=== PATIENT | female | born 1990 | race Caucasian/White ===

== ENCOUNTER → 2018-01-25 10:23 | Outpatient (CLI) | payer MEDICAID, SELFPAY ==
[2018-01-25 11:08] LABS: Hemoglobin 11.9 g/dl (12.0-15.0); Mean Corp Hgb Conc 33.1 g/gl (32-36); Mean Corpuscular Hgb 30.1 pg (27.0-32.0); Mean Corpuscular Volume 91.1 fL (81-99); Mean Platelet Vol. 9.3 fl (6.2-12.0); Platelet Count 374 K/mm3 (150-450); RBC Distribution Width CV 12.9 % (11.6-14.6); RBC Distribution Width SD 42.6 fl (35.1-43.9); Red Blood Count 3.95 M/mm3 (4.2-5.4)
[2018-01-25 11:09] LABS: Scan Indicated on CBC? Y/N NO
[2018-01-25 11:28] LABS: Glucose Challenge Gest 1H 50g 170 mg/dL (70-140)
== END ==
PROVIDERS: Visit Provider Obstetrics & Gynecology
DX: Z34.83 Encounter for supervision of other normal pregnancy, third trimester (principal)
CPT/HCPCS: 36415; 82950; 85027; 86850

== ENCOUNTER → 2018-02-01 06:40 | Outpatient (CLI) | payer MEDICAID, SELFPAY ==
[2018-02-01 08:01] LABS: Glucose GTT-Gestation. Fasting 93 mg/dL (<105)
[2018-02-01 09:01] LABS: Glucose GTT-Gestational 1 Hr 147 mg/dL (<190)
[2018-02-01 09:41] LABS: Glucose GTT-Gestational 2 Hr 126 mg/dL (<165)
[2018-02-01 11:19] LABS: Glucose GTT-Gestational 3 Hr 61 L (<145)
== END ==
PROVIDERS: Visit Provider Obstetrics & Gynecology
DX: O24.912 Unspecified diabetes mellitus in pregnancy, second trimester (principal); Z3A.00 Weeks of gestation of pregnancy not specified
CPT/HCPCS: 36415; 82951; 82952

== ENCOUNTER → 2018-03-17 11:26 | Outpatient (CLI) | payer MEDICAID, SELFPAY ==
[2018-03-17 15:48] LABS: Group B Strep DNA By PCR Negative (Negative); Internal Control PASS; Probe Check PASS; Specimen Processing Control PASS
== END ==
PROVIDERS: Visit Provider Obstetrics & Gynecology
DX: Z36.85 Encounter for antenatal screening for Streptococcus B (principal)
CPT/HCPCS: 87081; 87653

== ENCOUNTER 2018-04-09 21:16 | Inpatient (IN) | payer MEDICAID, SELFPAY ==
--- NOTE | 2018-04-08 11:36 | PLAC_PTH ---
PATIENT: MICHEL BLAND LOC: [facility] U#:[id number] AGE/SX: / ROOM: WP005 RE04/09/[address]: Dr. Marga Scales MD : 1990 BED: 1 DIS: 04/10/2018 SPEC #: [id number] RECD: 04/10/18 12:04 STATUS: GRACIELA RECarlos #: [id number] SARA: 04/08/18 11:[address]: Marga Garcia DEPT: SURGICAL PATHOLOGY RECD BY: Addison Peguero ENTERED: 04/12/18 11:24 SP TYPE: PLACENTA OTHR DR: Dr. Meño Alexander MD Tissues: Placenta, NOS Procedures: Surgery Specimen Level V HEADER OPERATION: Vaginal delivery PRE-OP DIAGNOSIS: 39 weeks , meconium TISSUE SUBMITTED: Placenta MICROSCOPIC DIAGNOSIS Woody placenta (546 gm): Umbilical cord ? trivascular with acute funisitis. Placental membranes ? acute deciduitis, mild acute chorionitis. Pigmented macrophages consistent with meconium staining. Placental disc ? acute vasculitis of superficial placental vessels, Vicky-Arturo change and mildly increased intraparenchymal microcalcifications. AM:jonathan 04/13/18 MICROSCOPIC DESCRIPTION Slides are reviewed. GROSS DESCRIPTION SPECIMEN: PLACENTA / CLINICAL INFORMATION: A. Weight: 3.459 kg B. Gestational Age: 39 weeks C. Sex: Male PLACENTAL WEIGHT (POST FIXATION): 546 gm PLACENTAL DIMENSIONS: 18 x 18 x 3 cm PLACENTAL SHAPE: Usual ovoid PLACENTAL WEIGHT FOR GESTATIONAL AGE: Within 10-99th percentile MEMBRANES - Present A. Insertion: Marginal B. Site of rupture from edge: 3.5 cm from edge of placental disc C. Color of membrane: Dubon-greenish consistent with meconium stain D. Abnormalities: None UMBILICAL CORD - Present A. Color: Dubon-jeronimo B. Insertion: Paracentral C. Length: 29 cm D. Diameter: 1 to 1.5 cm E. Number of vessels: Three F. Abnormalities: A few false knots are noted. PLACENTAL DISC - Present A. Color of surface: Dubon-jeronimo B. surface abnormalities: None C. Maternal cotyledons: Intact with minimal tears D. Attached retro placental clot: No clot E. Cut surface: Dark red and spongy F. Lesions: None G. Separate clot: Absent SECTIONS SUBMITTED: 1. Membrane roll 2. Cord, maternal end 3. Cord, end 4. Placental disc, and maternal surfaces 5. Placental disc, and maternal surfaces 6. Placental disc, and maternal surfaces JARROD:jonathan 04/12/18 TC:2 CPT: 50599
[2018-04-09 21:00] VITALS: BMI 431.0
[2018-04-09 21:23] LABS: ROM Internal Control Test YES-OK TO RESULT pt. (Internal QC); ROM Patient Test Negative (Negative)
[2018-04-09] MEDS: Lactated Ringers 1,000 ML 50 ML IV ×2 (21:25→23:00)
--- NOTE | 2018-04-09 21:30 | PCM.HPOB.BLA ---
- Problem List (1) 38 to 41 weeks gestation of Status: Acute (2) Labor established Status: Acute History and Physical Date of Admission: 04/09/18 Date: 04/09/2018 Name: MICHEL CASILLAS Age: 27 Date of : 1990 History and Physical Michel Casillas, a 27 year old female 0 0 0 0 0, presents with painful contractions. Denies leaking of fluid or vaginal bleeding. Fetus active. She recently smoked before arrival. [facility] MEDICATIONS HISTORY: vitamin ALLERGIES: No Known Allergies Infections - Chicken pox and yeast inf Illnesses - anxiety, migraines, ADD diagnosed in 2001 and mild pollen allergies Accidents - skull fx late , basketball injury with rt first rib removal age 17. Hospitalizations - see surgery and long stay-medical prob. Fx Skull post fall from horse 1999; Review of Systems: GENERAL - Denies fever, or chills SKIN - Denies skin changes EYES - Denies visual changes RESPIRATORY - Denies shortness of breath or wheezing CARDIOVASCULAR - Denies palpitations or chest pain GASTROINTESTINAL - Denies nausea, vomiting, diarrhea, constipation SOCIAL HISTORY: Alcohol Use - denies drinking Smoking - 5 cig/day Diet - balanced Diet, caffeine < 2 drinks per day and water Illicit Drug Use - denies cocaine, marijuana or heroine or other illicit drug use Residence - lives with Place of - [place] Spouse-Sig Other Name - KALEIGH Wiley Spouse-Sig Other Occupation - [employer] Spouse-Sig Other Phone No - [phone] Control - FAMILY HISTORY: Non-contributory MENSTRUAL HISTORY: LMP Known?- DefiniteAmount/Duration - 4-5 days, Regularity - Regular, LMP - 07/05/17, Age Onset Menarche - 12 PAST PREGNANCIES: Total Pregnancies - 1; Full Term Pregnancies - 0; Premature - 0; Abortions, Induced - 0; Abortions, Spontaneous - 0; Ectopics - 0; Multiple Births - 0; Living Children - 0 SURGICAL HISTORY: 1. [place] Teeth Removal ; - 2. removal rt rib ; - PHYSICAL EXAM BP- 140/87 140/100 P 80s-90s R 18 CONSTITUTIONAL - NAD, well nourished, and well developed SKIN - No rash, lesions, or ulcers HEENT - normocephalic, atraumatic, sclerae anicteric LUNGS - CTA x2 without wheezes, crackles or rales CARDIAC - Regular rate and rhythm without rubs, murmurs, or gallops ABDOMEN - Without hepatosplenomegaly, distention, masses, rebound, or guarding; gravid, fundus soft between contractions and nontender EXTREMITIES - trace LE edema, no calf tenderness NEUROLOGICAL - normal gait, normal balance, normal motor PSYCHIATRIC - A and O to time, place, person, mood and affect External Genitial Vagina - non-tender without lesions Urethra/Urethral Meatus - non-tender Bladder - non-tender Cervix - 4/80/-2, soft and anterior Uterus - 39w size FHR 145, minimal variability, no accelerations, + variable deceleration LABS O neg Rubella immune RPR nr HIV neg HBsAg neg HCV Ab neg 1h GTT 170 - 3h GTT wnl GC/CT neg PAP NILMA ASSESSMENT/PLAN: 1. Encounter for Supervision of Normal First , Third Trimester Admit in labor with Cat II FHR, elevated maternal BP No FHR acceleration despite acoustic stim and scalp stimulation. Will reposition and give IV fluids. Amniotomy performed with clear fluid and ISE placed. Monitor closely. Reviewed with patient if no significant improvement of FHR following resuscitative efforts will plan for section. Reviewed risks including, but not limited to pain, bleeding, infection including wound, endometritis and sepsis, scarring, need for blood transfusion, possible hysterectomy or further surgery, possible bowel or urinary injury, potential from complication, laceration or TTN. US with fetus cephalic Preeclamptic labs for elevated BPs Urine tox screen Patient and spouse given opportunity to ask questions and questions answered to their satisfaction.
[2018-04-09 21:44] LABS: Hematocrit 35.6 % (37-47); Hemoglobin 12.4 g/dl (12.0-15.0); Mean Corp Hgb Conc 34.8 g/gl (32-36); Mean Platelet Vol. 10.1 fl (6.2-12.0); Platelet Count 455 K/mm3 (150-450); RBC Distribution Width SD 44.4 fl (35.1-43.9); Scan Indicated on CBC? Y/N NO; White Blood Count 21.2 K/mm3 (4.4-11.0)
[2018-04-09 21:51] LABS: International Normalized Ratio 0.9; Prothrombin Time (Protime)PT. 12.5 SECONDS (11.7-14.9)
[2018-04-09 21:52] LABS: Partial Thromboplast Time 22.8 Seconds (24.1-36.2)
--- NOTE | 2018-04-09 21:55 | PCM.PN.BLA ---
Progress Note LABOR PROGRESS NOTE - Entry for approximately 2155h Contractions have intensified since water was broken. AVSS GEN - breathing through contractions FHR 135, moderate variability, + accelerations, + variable deceleration TOCO 4/10 min SVE deferred A/P: 27yo G1 @ 38 6/7wga in latent labor, post AROM, Cat II FHR -Labs reviewed and not c/w preeclampsia -FHR improved with intrauterine resuscitation. Following discussion, will plan to continue labor. Reviewed plan for continuous monitoring and that medical recommendation for delivery mode may change at any time. Patient reports understanding. Desires epidural. Patient and support persons given opportunity to ask questions and questions answered to their satisfaction. -Maternal and statuses overall reassuring. -Anesthesiology consult
[2018-04-09 22:04] LABS: AST(SGOT) 25 U/L (15-37); Alanine Aminotransfer ALT/SGPT 28 U/L (13-56); Creatinine, Serum 0.61 mg/dL (0.55-1.02); EST Glomerular Filtration Rate 126 mL/min (>60); Est Glom Filt Rate - Afr Amer 153 mL/min (>60); Estimated Creatinine Clearance 221.51 ml/min; Uric Acid 4.4 mg/dL (2.6-6.0)
--- NOTE | 2018-04-09 22:35 | HP.PCM_ITS ---
- Problem List (1) 38 to 41 weeks gestation of Status: Acute (2) Labor established Status: Acute History and Physical Date of Admission: 04/09/18 Date: 04/09/2018 Name: MICHEL CASILLAS Age: 27 Date of : 1990 History and Physical Michel Casillas, a 27 year old female 0 0 0 0 0, presents with painful contractions. Denies leaking of fluid or vaginal bleeding. Fetus active. She recently smoked before arrival. [facility] MEDICATIONS HISTORY: vitamin ALLERGIES: No Known Allergies Infections - Chicken pox and yeast inf Illnesses - anxiety, migraines, ADD diagnosed in 2001 and mild pollen allergies Accidents - skull fx late , basketball injury with rt first rib removal age 17. Hospitalizations - see surgery and long stay-medical prob. Fx Skull post fall from horse 1999; Review of Systems: GENERAL - Denies fever, or chills SKIN - Denies skin changes EYES - Denies visual changes RESPIRATORY - Denies shortness of breath or wheezing CARDIOVASCULAR - Denies palpitations or chest pain GASTROINTESTINAL - Denies nausea, vomiting, diarrhea, constipation SOCIAL HISTORY: Alcohol Use - denies drinking Smoking - 5 cig/day Diet - balanced Diet, caffeine < 2 drinks per day and water Illicit Drug Use - denies cocaine, marijuana or heroine or other illicit drug use Residence - lives with Place of - [place] Spouse-Sig Other Name - KALEIGH Wiley Spouse-Sig Other Occupation - [employer] Spouse-Sig Other Phone No - [phone] Control - FAMILY HISTORY: Non-contributory MENSTRUAL HISTORY: LMP Known?- DefiniteAmount/Duration - 4-5 days, Regularity - Regular, LMP - 07/05/17, Age Onset Menarche - 12 PAST PREGNANCIES: Total Pregnancies - 1; Full Term Pregnancies - 0; Premature - 0; Abortions, Induced - 0; Abortions, Spontaneous - 0; Ectopics - 0; Multiple Births - 0; Living Children - 0 SURGICAL HISTORY: 1. [place] Teeth Removal ; - 2. removal rt rib ; - PHYSICAL EXAM BP- 140/87 140/100 P 80s-90s R 18 CONSTITUTIONAL - NAD, well nourished, and well developed SKIN - No rash, lesions, or ulcers HEENT - normocephalic, atraumatic, sclerae anicteric LUNGS - CTA x2 without wheezes, crackles or rales CARDIAC - Regular rate and rhythm without rubs, murmurs, or gallops ABDOMEN - Without hepatosplenomegaly, distention, masses, rebound, or guarding; gravid, fundus soft between contractions and nontender EXTREMITIES - trace LE edema, no calf tenderness NEUROLOGICAL - normal gait, normal balance, normal motor PSYCHIATRIC - A and O to time, place, person, mood and affect External Genitial Vagina - non-tender without lesions Urethra/Urethral Meatus - non-tender Bladder - non-tender Cervix - 4/80/-2, soft and anterior Uterus - 39w size FHR 145, minimal variability, no accelerations, + variable deceleration LABS O neg Rubella immune RPR nr HIV neg HBsAg neg HCV Ab neg 1h GTT 170 - 3h GTT wnl GC/CT neg PAP NILMA ASSESSMENT/PLAN: 1. Encounter for Supervision of Normal First , Third Trimester Admit in labor with Cat II FHR, elevated maternal BP No FHR acceleration despite acoustic stim and scalp stimulation. Will reposition and give IV fluids. Amniotomy performed with clear fluid and ISE placed. Monitor closely. Reviewed with patient if no significant improvement of FHR following resuscitative efforts will plan for section. Reviewed risks including, but not limited to pain, bleeding, infection including wound, endometritis and sepsis, scarring, need for blood transfusion, possible hysterectomy or further surgery, possible bowel or urinary injury, potential from complication, laceration or TTN. US with fetus cephalic Preeclamptic labs for elevated BPs Urine tox screen Patient and spouse given opportunity to ask questions and questions answered to their satisfaction.
[2018-04-09] MEDS: fentaNYL-bupivacaine (epidural) 100 ML BAG EPIDURAL (22:36)
[2018-04-09] MEDS: Mag Hydrox/Al Hydrox/Simeth 30 ML UDC PO (23:20)
[2018-04-09 23:23] LABS: Amphetamine Urine VISTA NEGATIVE (<1000 ng/mL); Barbiturate Urine VISTA NEGATIVE (< 200 ng/mL); Benzodiazepine Urine VISTA NEGATIVE (< 200 ng/mL); Cocaine Urine VISTA NEGATIVE (< 300 ng/mL); Ecstacy Urine VISTA NEGATIVE (< 500 ng/mL); Methadone Urine VISTA NEGATIVE (< 300 ng/mL); PCP Urine VISTA NEGATIVE (< 25 ng/mL); THC Urine VISTA POSITIVE (< 50 ng/mL); Vista UDS pH Range 7
[2018-04-10] MEDS: Ondansetron 4 MG/2 ML Vial IV (01:32)
[2018-04-10] MEDS: fentaNYL-bupivacaine (epidural) 100 ML BAG EPIDURAL (02:53)
[2018-04-10] MEDS: Amnioinfusion- 0.9% NS 1,000 ML IV.SOLN. 300 ML INTRA-UTER (03:56)
[2018-04-10] MEDS: Lactated Ringers 1,000 ML 50 ML IV (03:58)
--- NOTE | 2018-04-10 07:48 | PCM.PN.BLA ---
Progress Note LABOR PROGRESS NOTE No complaints. Comfortable with epidural. AVSS GEN - NAD, AAO x 3 FHR 145, moderate variability, + accelerations, no decelerations TOCO 3/10 min SVE FD/100/+1 with meconium stained fluid per RN Charles Leon at approx 0650h. A/P: 27yo G1 @ 39wga in labor, Cat II FHR -Proceed to pushing given meconium stained fluid and Cat II FHR -Discussed LARCs - patient declines. -Maternal and status overall reassuring
[2018-04-10] MEDS: Mag Hydrox/Al Hydrox/Simeth 30 ML UDC PO (08:23)
--- NOTE | 2018-04-10 08:31 | PCM.PN.BLA ---
Progress Note LABOR PROGRESS NOTE Patient pushing with good effort. SVE FD/+1 and pushed to +2, small caput. Direct OP. FHR 145, moderate variability, + accelerations, + variable decelerations, Cat II FHR. status overall reassuring. Continue pushing.
[2018-04-10 09:58] LABS: Protein, Urine (Random) 12.6 mg/dL (<11.9); Protein:Creat Ratio 441 mg/g CRE (0-200)
[2018-04-10] MEDS: Oxytocin 30 units/NS 500 ml 30 UNITS/500 ML IV.SOLN 334 UNITS IV (10:25)
--- NOTE | 2018-04-10 10:48 | PCM.OB.VAG ---
- Problem List (1) 38 to 41 weeks gestation of Status: Acute (2) Labor established Status: Acute Vaginal Delivery Maternal Presentation: Active Labor, - - Cat II FHR Amniotomy for augmentation Amniotic Membrane Rupture Type: Artificial Rupture of Membrane time: 04/09/187h Amniotic Fluid Description: Thick meconium Final ADRIAN: 04/17/18 Gestational age: 39 Weeks and 0 Days Commodore doctor who attended delivery (if requested by OB): Carla Byrnes Date of Procedure: 04/10/18 Pre-Operative Diagnosis: 39 weeks, meconium Post-Operative Diagnosis: 39 weeks, meconium Surgery/ Procedure Performed: Spontaneous Vaginal Delivery Anesthesiologist: Prabha Escamilla Type of Anesthesia: Epidural Description of Procedure: Patient was FD/+3 on my arrival. She pushed with excellent effort through a terminal deceleration to deliver a vigorous male infant in OA over an intact perineum. The was placed on the maternal abdomen and further attended by nursery personnel. The cord was doubly clamped and cut at approximately 3 minutes of life. Cord gases, cord blood specimen were obtained. The placenta delivered spontaneously and appeared intact on inspection. IV pitocin was started. Intrauterine exam performed. Fundal tone was excellent. A small vaginal laceration was repaired with 3-0 Vicryl Rapide for hemostasis. A right labial laceration was also reapproximated with 3-0 Vicryl Rapide with hemostasis attained. Sponge counts were correct x 2 Patient tolerated the procedure well. Presentation: Vertex Placental Delivery Description: Spontaneous Placenta Disposition: [facility] Cord Vessel Description: 3 Vessels Cord Gases drawn per routine: ABG, VBG Cord Entanglement: None Estimated Blood Loss: 250 ml Infant A gender: Male (1 minute): 8 (5 minute): 9 Episiotomy Description: None Laceration: Midline, Vaginal Extension/lac, 1st degree Medications given after delivery: IV Pitocin Complications: None
[2018-04-10] MEDS: Oxytocin 30 units/NS 500 ml 30 UNITS/500 ML IV.SOLN 167 UNITS IV (10:55)
[2018-04-10 12:07] LABS: Pathology Specimen OB SEE PATHOLOGY REPORT
[2018-04-10 15:58] VITALS: BP 143/87; PULSE 85; RESP 16; TEMP 37; O2SAT 98
--- NOTE | 2018-04-10 16:04 | NURSING ---
Pt up to bathroom x2, voided qs x 2, but did not measure. Pt states feels bladder emptied each time.
--- NOTE | 2018-04-10 17:01 | PCM.DCVAG ---
Discharge Diet: No Restrictions Discharge Activity: Return to Normal Activity, May Shower, May Take a Tub Bath May resume sexual activity in: 6 weeks Lifting Restrictions: 20 lb Call your doctor if you observe: Fever of 101 or Higher, Inability to urinate, Inability to have a bowel movement, Using more than one pad per hour, Shortness of breath, Chest pain, Calf discomfort, Uncontrolled pain, - - Persistent headache Additional Instructions: If you experience any of the following, contact your healthcare provider. Bleeding that soaks a pad every hour for 2 hours Fever 100.4 or higher Unrelieved incision or abdominal pain Swelling, redness, discharge or bleeding from your incision or episiotomy site Your incision begins to separate Problems urinating (including inability to urinate or burning while urinating). Visual changes Severe headache Flu-like symptoms Pain or redness in one of both of your breasts Pain, warmth, tenderness or swelling in your legs, especially the calf area Frequent nausea and vomiting Symptoms of depression or anxiety If you experience any of the following, call 911 or go to the nearest Emergency Room. Chest pain Problems breathing Seizure activity Partial or complete paralysis of a body part, slurred speech, weakness or drooping of the face, or a sudden inability to walk or hold your balance Allergies/Adverse Reactions: Allergies No Known Allergies Allergy (Verified 04/09/18 20:51) Medications to take at Discharge Vits [Prenatabs FA] 1 tablet PO DAILY 04/09/18 Docusate Sodium [Colace] 100 mg PO BID PRN PRN #60 cap 04/10/18 Ibuprofen 600 mg PO TID PRN #30 tab 04/10/18 The following prescriptions were given: Docusate Sodium [Colace] 100 mg PO BID PRN PRN #60 cap PRN Reason: Constipation Ibuprofen 600 mg PO TID PRN #30 tab PRN Reason: Pain Please Follow Up With: Sanju Jewell MD When: 1-2 weeks AND at 6 weeks Primary Care Physician: Meño Alexander MD [Primary Care Provider] -
--- NOTE | 2018-04-10 17:04 | DCINST_ITS ---
Discharge Diet: No Restrictions Discharge Activity: Return to Normal Activity, May Shower, May Take a Tub Bath May resume sexual activity in: 6 weeks Lifting Restrictions: 20 lb Call your doctor if you observe: Fever of 101 or Higher, Inability to urinate, Inability to have a bowel movement, Using more than one pad per hour, Shortness of breath, Chest pain, Calf discomfort, Uncontrolled pain, - - Persistent headache Additional Instructions: If you experience any of the following, contact your healthcare provider. * Bleeding that soaks a pad every hour for 2 hours * Fever 100.4 or higher * Unrelieved incision or abdominal pain * Swelling, redness, discharge or bleeding from your incision or episiotomy site * Your incision begins to separate * Problems urinating (including inability to urinate or burning while urinating) . * Visual changes * Severe headache * Flu-like symptoms * Pain or redness in one of both of your breasts * Pain, warmth, tenderness or swelling in your legs, especially the calf area * Frequent nausea and vomiting * Symptoms of depression or anxiety If you experience any of the following, call 911 or go to the nearest Emergency Room. * Chest pain * Problems breathing * Seizure activity * Partial or complete paralysis of a body part, slurred speech, weakness or drooping of the face, or a sudden inability to walk or hold your balance Allergies/Adverse Reactions: Allergies No Known Allergies Allergy (Verified 04/09/18 20:51) Medications to take at Discharge Vits [Prenatabs FA] 1 tablet PO DAILY 04/09/18 Docusate Sodium [Colace] 100 mg PO BID PRN PRN #60 cap 04/10/18 Ibuprofen 600 mg PO TID PRN #30 tab 04/10/18 The following prescriptions were given: Docusate Sodium [Colace] 100 mg PO BID PRN PRN #60 cap PRN Reason: Constipation Ibuprofen 600 mg PO TID PRN #30 tab PRN Reason: Pain Please Follow Up With: Sanju Jewell MD When: 1-2 weeks AND at 6 weeks Primary Care Physician: Meño Alexander MD [Primary Care Provider] -
[2018-04-10 17:30] VITALS: BP 133/87; PULSE 88; RESP 16; TEMP 36.6; O2SAT 98
--- NOTE | 2018-04-10 18:24 | PCM.PN.OB ---
Patient Problems: Active and Suspected Problems (spontaneous vaginal delivery) (Acute) 38 to 41 weeks gestation of (Acute) Labor established (Acute) Subjective: Denies headache, vision changes, shortness of breath, chest pain, abdominal pain or lightheadedness. Notes glittering in vision and headache however when does not wear glasses for too long in the past, however this occurred also before and resolves immediately upon wearing glasses. None of these sx today. She feels physically well. Notes bleeding is not heavy - pad is minimally to moderate saturated after several hours. She indicated concern about being with infant and hopes he will be okay. Objective: AVSS - Physical Exam General: Alert, Oriented x3, Cooperative, No apparent distress HEENT: Atraumatic, Normocephalic Lungs: Clear to auscultation, Normal air movement Cardiovascular: Regular rate, Regular Rhythm, Normal S1, Normal S2 Abdomen: Soft, Non Tender, Non-Distended, - - Fundus firm and nontender Extremities: No edema, No Calf Tenderness Neurological: Deep Tendon Reflexes 2+/4 and Symmetrical, Neuro grossly intact, - - No clonus Psych/Mental Status: Normal Affect, Appropriate, Alert and oriented to time, place, person, mood and affect Vital Signs Temp Pulse Resp BP Pulse Ox 97.8 F 88 16 133/87 H 98 04/10/18 17:30 04/10/18 17:30 04/10/18 17:30 04/10/18 17:30 04/10/18 17:30 Oxygen Delivery Method Room Air Weight: 100.4 kg Body Mass Index (BMI) 431.0 Intake and Output for Last 24 Hours 04/08/18 04/09/18 04/10/18 23:59 23:59 23:59 Intake Total 4826 / 4826 Output Total 4400 / 4400 Balance 426 / 426 Laboratory Tests Past 24 Hrs 04/09/18 04/09/18 04/09/18 20:43 21:25 21:25 WBC 21.2 H RBC 4.00 L Hgb 12.4 Hct 35.6 L MCV 89.0 MCH 31.0 MCHC 34.8 RDW 14.0 RDW Differential 44.4 H Plt Count 455 H MPV 10.1 PT INR APTT Creatinine Estim Creat Clear Calc Est GFR (MDRD) Af Amer Est GFR (MDRD) Non-Af Uric Acid AST ALT U Random Total Protein Urine Creatinine Protein/Creatinin Ratio Vag Amniotic Fld Detect Negative Urine Opiates Screen Urine Methadone Screen Ur Barbiturates Screen Ur Phencyclidine Scrn Ur Amphetamines Screen U Methamphetamin-MDMA U Benzodiazepines Scrn Urine Cocaine Screen U Cannabinoids Screen Ur Drug Screen Comment Blood Type Cancelled A1 Antigen Typing Cancelled Rho(D) Type Cancelled Antibody Screen Cancelled Screen Baby's Blood Type Baby's PATRICIA 04/09/18 04/09/18 04/09/18 21:25 21:25 22:12 WBC RBC Hgb Hct MCV MCH MCHC RDW RDW Differential Plt Count MPV PT 12.5 INR 0.9 APTT 22.8 L Creatinine 0.61 Estim Creat Clear Calc 221.51 Est GFR (MDRD) Af Amer 153 Est GFR (MDRD) Non-Af 126 Uric Acid 4.4 AST 25 ALT 28 U Random Total Protein Urine Creatinine Protein/Creatinin Ratio Vag Amniotic Fld Detect Urine Opiates Screen Urine Methadone Screen Ur Barbiturates Screen Ur Phencyclidine Scrn Ur Amphetamines Screen U Methamphetamin-MDMA U Benzodiazepines Scrn Urine Cocaine Screen U Cannabinoids Screen Ur Drug Screen Comment Blood Type O NEGATIVE A1 Antigen Typing Rho(D) Type Antibody Screen NEGATIVE Screen Baby's Blood Type Baby's PATRICIA 04/09/18 04/09/18 04/10/18 22:20 22:20 11:50 WBC RBC Hgb Hct MCV MCH MCHC RDW RDW Differential Plt Count MPV PT INR APTT Creatinine Estim Creat Clear Calc Est GFR (MDRD) Af Amer Est GFR (MDRD) Non-Af Uric Acid AST ALT U Random Total Protein 12.6 H Urine Creatinine 28.60 Protein/Creatinin Ratio 441 H Vag Amniotic Fld Detect Urine Opiates Screen NEGATIVE Urine Methadone Screen NEGATIVE Ur Barbiturates Screen NEGATIVE Ur Phencyclidine Scrn NEGATIVE Ur Amphetamines Screen NEGATIVE U Methamphetamin-MDMA NEGATIVE U Benzodiazepines Scrn NEGATIVE Urine Cocaine Screen NEGATIVE U Cannabinoids Screen POSITIVE H Ur Drug Screen Comment Blood Type A1 Antigen Typing Rho(D) Type Antibody Screen Screen NEGATIVE Baby's Blood Type O POSITIVE Baby's PATRICIA NEGATIVE Medical Necessity - Tobacco Use Smoking Status: Light Smoker (<10/day) Assessment/Plan Active and Suspected Problems (spontaneous vaginal delivery) (Acute) 38 to 41 weeks gestation of (Acute) Labor established (Acute) 27yo s/p with h/o anxiety, tobacco use requesting early discharge due to pending transfer due to respiratory complications. Few elevated BPs intrapartum/. 04/09/18 preeclamptic serum labs negative and urine p/c 0.44 however collected following rupture of membranes, thus possibly contaminated. With chart and nursing staff review it appears blood pressure elevation most likely related to anxiety - occurred in acute labor with painful contractions and when she had several visitors and she indicated feeling anxious with too many visitors per RN with quick resolution to baseline BP after visitors left. Most recent elevated BP occurred shortly following decompensatory event and patient also noted significant anxiety and concern for infant. Patient remains asx for preeclampsia and no exam findings during my assessment. I have cleared for discharge as no evidence of preeclampsia. However, reviewed with her again potential for preeclampsia to occur in women even following delivery and potential sequelae including neurologic, hepatic and renal complications. Patient reports understanding. Si/sx reviewed with her and her family members. Pt encouraged to call office for any concern and understands she must follow up for BP check on or Wednesday this coming week. Additionally, reviewed increased risk for depressions. Discussed PP blues and sx differentiating PP depression from blues. Rh negative, Rh positive. For Rhogam, then will d/c later this evening.
--- NOTE | 2018-04-11 08:15 | DS.PCM_ITS ---
Discharge Date and Diagnosis Date of Admission: 04/09/18 Date of Discharge: 04/10/18 Hospital Course and Treatment Summary of Care Provided: The patient is a 27 year old F admitted at 38 6/7wga in labor. She had an at 39wga. She was noted to have intermittent BP elevation during her hospital course attributed to anxiety and was ruled out for preeclampsia. She was discharged to home on day of delivery after observation for more than 8 hours as was transferred to [place] for respiratory complications. Her course was otherwise unremarkable. Discharge Diet: No Restrictions Discharge Activity: Return to Normal Activity, May Shower, May Take a Tub Bath May resume sexual activity in: 6 weeks Call your doctor if you observe: Fever of 101 or Higher, Inability to urinate, Inability to have a bowel movement, Using more than one pad per hour, Shortness of breath, Chest pain, Calf discomfort, Uncontrolled pain, - - Persistent headache Home Medications: Medications to take at Discharge Vits [Prenatabs FA] 1 tablet PO DAILY 04/09/18 Docusate Sodium [Colace] 100 mg PO BID PRN PRN #60 cap 04/10/18 RX: Ibuprofen 600 mg PO TID PRN #30 tab 04/10/18 Following Prescrptions Were Given to Patient: Docusate Sodium [Colace] 100 mg PO BID PRN PRN #60 cap PRN Reason: Constipation RX: Ibuprofen 600 mg PO TID PRN #30 tab PRN Reason: Pain Primary Care Physician: Meño Alexander MD [Primary Care Provider] - Please Follow Up With: Sanju Jewell MD When: 1 week for BP check Please Follow Up With: Sanju Jewell MD When: 6 weeks for visit Patient Instructions: After a Vaginal , Understanding Preeclampsia Medical Necessity - Tobacco Use Smoking Status: Light Smoker (<10/day) Meaningful Use Info Meaningful Use Diagnoses (Choose all that apply): None applicable
== END 2018-04-10 20:30 | disposition home or self-care (01) | DRG 373 ==
LOC: WPOUT 21:16
PROVIDERS: Admitting Provider Obstetrics & Gynecology; Visit Provider Obstetrics & Gynecology
DX: O77.0 Labor and delivery complicated by meconium in amniotic fluid (principal); O70.0 First degree perineal laceration during delivery; F41.9 Anxiety disorder, unspecified; R03.0 Elevated blood-pressure reading, without diagnosis of hypertension; O75.89 Other specified complications of labor and delivery; Z3A.39 39 weeks gestation of pregnancy; Z37.0 Single live birth; O99.334 Smoking (tobacco) complicating childbirth; F17.200 Nicotine dependence, unspecified, uncomplicated
CPT/HCPCS: 59025; 59050; 76815; 80307; 82565; 82570; 84112; 84156; 84450; 84460; 84550; 85027; 85461; 85610; 85730; 86850; 86900; 88307; 90384; 99218; J7030; J7120; G0378; J2405; J2790

== ENCOUNTER 2018-05-08 05:13 | Emergency (ER) | payer MEDICAID, SELFPAY ==
[2018-05-08 05:14] VITALS: BP 115/73; PULSE 83; RESP 16; TEMP 36.4; O2SAT 98; BMI 30.4
[2018-05-08 06:02] VITALS: RESP 18
[2018-05-08 06:18] LABS: Absolute Lymphocyte Count 2.46 X10^3/ul (0.83-4.51); Absolute Neutrophil Count 5.6 X10^3/uL (2.0-7.7); Basophil# 0.06 X10^3/uL; Basophil% 0.6 % (0-1); Eosinophil# 0.43 X10^3/uL; Eosinophils% 4.5 % (0-5); Hematocrit 39.9 % (37-47); Hemoglobin 12.7 g/dl (12.0-15.0); Lymphocyte # 2.46 X10^3/ul (4.0); Lymphocyte % 25.5 % (19-41); Mean Corp Hgb Conc 31.8 g/gl (32-36); Mean Corpuscular Hgb 28.9 pg (27.0-32.0); Mean Corpuscular Volume 90.9 fL (81-99); Mean Platelet Vol. 9.1 fl (6.2-12.0); Monocyte# 1.06 X10^3/uL; Neutrophil % 58.1 % (47-70); Platelet Count 244 K/mm3 (150-450); RBC Distribution Width CV 13.7 % (11.6-14.6); RBC Distribution Width SD 45.6 fl (35.1-43.9); Red Blood Count 4.39 M/mm3 (4.2-5.4); White Blood Count 9.6 K/mm3 (4.4-11.0)
[2018-05-08 06:26] VITALS: BP 103/72; BP 105/71; BP 97/65; PULSE 74; PULSE 75; PULSE 76
[2018-05-08] MEDS: 0.9% Normal Saline 1,000 ML 150 ML IV (06:26)
[2018-05-08 06:33] LABS: Differential Comment SCANNED; Differential Indicated SCAN CRITERIA MET; POSITIVE COUNT NO; POSITIVE DIFFERENTIAL NO; POSITIVE MORPHOLOGY YES
--- NOTE | 2018-05-08 07:01 | ED.VISSUMM ---
- ER Visit Summary Date of Service: 05/08/18 Chief Complaint: [Vaginal bleeding] History of Present Illness: The patient is a 27 F [presents the emergency department with bleeding that started yesterday morning. Patient states that she delivered a child about 4 weeks ago. Patient is . Patient states she had not been having very much bleeding until yesterday. Patient started using pads and went through about 4 pads followed by using depends and she went through about 4 of those within the last 24 hours. Patient became more concerned when she woke up to feed the baby about 3:30 AM and within a half an hour she filled a depends and she noticed some large clots. Patient denies feeling lightheaded or dizzy. She describes some mild lower abdominal cramping. Patient has not had any fevers. Physical Examination: [HEENT-PERRLA, EOMI. Cranial nerves II through XII grossly intact. TMs clear. Mucous membranes moist. No adenopathy. Cardiovascular-regular rate and rhythm without murmur or ectopy Lungs-clear to auscultation, chest wall stable without crepitus or subcu emphysema Abdomen-normoactive bowel sounds, soft, nontender, no rebound or rigidity, no peritoneal signs. Pelvic exam-normal external genitalia, small clots noted within the vaginal vault. Once the clots were removed patient was noted to have small amount of bright red blood oozing from the cervical office. No vaginal wall lacerations noted. On exam the uterus did not appear enlarged or tender. Extremities-intact ?4, normal range of motion, normal pulses, atraumatic] Test Results: [Orthostatic vital signs were negative. CBC with differential showed a white count of 9.6, hemoglobin 12.7, hematocrit 39.9, platelets 244.] Emergency Department Course and Treatment: [Case was discussed with Dr. Deandre Scales who was covering for Dr. Jewell. At this point patient advised to follow-up in 24 hours and call the office with an update. Patient to be seen in the office this week for her 5 week visit. Patient advised to return to the ER if bleeding through more than a pad an hour for 4 consecutive hours. Patient advised to return if lightheaded or dizzy, fever, abdominal pain, or condition should worsen in any way.] Treatment Plan: [Follow-up with PARAPROFESSIONAL AIDE or return if symptoms should worsen.] Disposition: [Discharged to home in stable condition Impression: [Vaginal bleeding-4 weeks ] This note was generated with [employer] dictation software. It may contain incorrect words, spelling, and punctuation that were not noted in review of the chart prior to signing ED Disposition - Plan for ED Patient: Chief Complaint: Vag Bleeding Referrals: Meño Alexander MD [Primary Care Provider] -
--- NOTE | 2018-05-08 07:05 | ED.DCSUM_ITS ---
- ER Visit Summary Date of Service: 05/08/18 Chief Complaint: [Vaginal bleeding] History of Present Illness: The patient is a 27 F [presents the emergency department with bleeding that started yesterday morning. Patient states that she delivered a child about 4 weeks ago. Patient is . Patient states she had not been having very much bleeding until yesterday. Patient started using pads and went through about 4 pads followed by using depends and she went through about 4 of those within the last 24 hours. Patient became more concerned when she woke up to feed the baby about 3:30 AM and within a half an hour she filled a depends and she noticed some large clots. Patient denies feeling lightheaded or dizzy. She describes some mild lower abdominal cramping. Patient has not had any fevers. Physical Examination: [HEENT-PERRLA, EOMI. Cranial nerves II through XII grossly intact. TMs clear. Mucous membranes moist. No adenopathy. Cardiovascular-regular rate and rhythm without murmur or ectopy Lungs-clear to auscultation, chest wall stable without crepitus or subcu emphysema Abdomen-normoactive bowel sounds, soft, nontender, no rebound or rigidity, no peritoneal signs. Pelvic exam-normal external genitalia, small clots noted within the vaginal vault. Once the clots were removed patient was noted to have small amount of bright red blood oozing from the cervical office. No vaginal wall lacerations noted. On exam the uterus did not appear enlarged or tender. Extremities-intact ?4, normal range of motion, normal pulses, atraumatic] Test Results: [Orthostatic vital signs were negative. CBC with differential showed a white count of 9.6, hemoglobin 12.7, hematocrit 39.9, platelets 244.] Emergency Department Course and Treatment: [Case was discussed with Dr. Deandre Scales who was covering for Dr. Jewell. At this point patient advised to follow- up in 24 hours and call the office with an update. Patient to be seen in the office this week for her 5 week visit. Patient advised to return to the ER if bleeding through more than a pad an hour for 4 consecutive hours. Patient advised to return if lightheaded or dizzy, fever, abdominal pain, or condition should worsen in any way.] Treatment Plan: [Follow-up with BLUEPRINT CUTTER or return if symptoms should worsen.] Disposition: [Discharged to home in stable condition Impression: [Vaginal bleeding-4 weeks ] This note was generated with [employer] dictation software. It may contain incorrect words, spelling, and punctuation that were not noted in review of the chart prior to signing ED Disposition - Plan for ED Patient: Chief Complaint: Vag Bleeding Referrals: Meño Alexander MD [Primary Care Provider] -
--- NOTE | 2018-05-08 07:06 | ED.DEP ---
ED Disposition - Plan for ED Patient: Chief Complaint: Vag Bleeding Instructions: ED Bleed Irregular Vaginal Referrals: Meño Alexander MD [Primary Care Provider] - Sanju Jewell MD [STAFF PHYSICIAN] - 1-2 Days if not improving
[2018-05-08 07:14] VITALS: BP 111/72; PULSE 78; RESP 16; O2SAT 100
== END 2018-05-08 07:15 | disposition home or self-care (01) ==
LOC: ED 06:05
PROVIDERS: Emergency Provider Emergency Medicine
DX: O72.2 Delayed and secondary postpartum hemorrhage (principal)
CPT/HCPCS: 85025; 86850; 86870; 86900; 96360; 96361; 99284; J7030; A4216

== ENCOUNTER → 2018-09-08 14:05 | Outpatient (CLI) | payer MEDICAID, SELFPAY ==
[2018-09-13 11:01] LABS: HPV Reflexed? NOT INDICATED
== END ==
PROVIDERS: Visit Provider Obstetrics & Gynecology
DX: Z12.72 Encounter for screening for malignant neoplasm of vagina (principal)
CPT/HCPCS: 88175; G0145

== ENCOUNTER → 2019-08-02 17:05 | Outpatient (CLI) | payer MEDICAID, SELFPAY ==
[2019-08-02 20:56] LABS: Chlamydia Trachomatis by PCR Negative (Negative); Neisserai gonorrhoeae by PCR Negative (Negative); Probe Check PASS; Sample Adequacy Control PASS; Specimen Processing Control PASS
== END ==
PROVIDERS: Visit Provider Advanced Practice Midwife
DX: Z11.3 Encounter for screening for infections with a predominantly sexual mode of transmission (principal)
CPT/HCPCS: 87491; 87591

== ENCOUNTER → 2019-08-08 11:12 | Outpatient (CLI) | payer MEDICAID, SELFPAY ==
[2019-08-08 13:45] LABS: Color, Urine Straw (Yellow); Glucose, Dipstick Normal (Normal); Ketone-Dipstick 5 mg/dl (Negative); Leukocyte Esterase-Dipstick Negative /ul (Negative); Nitrite-Dipstick Negative (Negative); Occult Blood-Urine Negative /ul (Negative); Protein-Dipstick Negative (Negative); Specific Gravity, Urine 1.005 (1.002-1.030); Urine Bilirubin Dipstick Negative (Negative); Urine Clarity Clear (Clear); Urine Urobilinogen Normal (Normal)
[2019-08-08 13:47] LABS: Absolute Lymphocyte Count 2.79 X10^3/uL (0.83-4.51); Absolute Neutrophil Count 13.8 X10^3/uL (2.0-7.7); Basophil# 0.08 X10^3/uL; Basophil% 0.5 % (0-1); Eosinophil# 0.16 X10^3/uL; Eosinophils% 0.9 % (0-5); Hematocrit 40.2 % (37-47); Hemoglobin 13.3 g/dL (12.0-15.0); Lymphocyte # 2.79 X10^3/ul (4.0); Lymphocyte % 15.8 % (19-41); Mean Corp Hgb Conc 33.1 g/dL (32-36); Mean Corpuscular Hgb 30.3 pg (27.0-32.0); Mean Corpuscular Volume 91.6 fL (81-99); Monocyte# 0.73 X10^3/uL; Monocyte% 4.1 % (0-10); NRBC Flagged by Analyzer 0 % (0-5); Neutrophil # 13.77 X10^3/uL (2.7-7.7); Neutrophil % 78.2 % (47-70); Platelet Count 411 K/mm3 (150-450); RBC Distribution Width CV 12.5 % (11.6-14.6); RBC Distribution Width SD 41.5 fl (35.1-43.9); Red Blood Count 4.39 M/mm3 (4.2-5.4); White Blood Count 17.6 K/mm3 (4.4-11.0)
[2019-08-08 13:55] LABS: Amphetamine Urine VISTA NEGATIVE (<1000 ng/mL); Barbiturate Urine VISTA NEGATIVE (< 200 ng/mL); Benzodiazepine Urine VISTA NEGATIVE (< 200 ng/mL); Cocaine Urine VISTA NEGATIVE (< 300 ng/mL); Ecstacy Urine VISTA NEGATIVE (< 500 ng/mL); Methadone Urine VISTA NEGATIVE (< 300 ng/mL); PCP Urine VISTA NEGATIVE (< 25 ng/mL); THC Urine VISTA POSITIVE (< 50 ng/mL); Vista UDS pH Range 6
[2019-08-08 14:50] LABS: HIV - WCH Non-Reactive (Nonreactive); Hepatitis B Surface Antigen Non-Reactive (Nonreactive); Hepatitis C Antibody Non-Reactive (Nonreactive); Rubella IgG > 500.0 IU/mL; Vitamin D,25 Hydroxy 22.8 ng/mL (29.95-100.01)
[2019-08-11 01:38] LABS: Prenatal RPR NONREACTIVE (NONREACTIVE)
== END ==
PROVIDERS: Visit Provider Obstetrics & Gynecology
DX: Z34.82 Encounter for supervision of other normal pregnancy, second trimester (principal)
CPT/HCPCS: 36415; 80307; 81002; 82306; 84443; 85025; 86703; 86762; 86803; 87340

== ENCOUNTER → 2019-11-06 09:51 | Outpatient (CLI) | payer MEDICAID, SELFPAY ==
[2019-11-06 10:58] LABS: Hematocrit 35.4 % (37-47); Hemoglobin 11.9 g/dL (12.0-15.0); Mean Corp Hgb Conc 33.6 g/dL (32-36); Mean Corpuscular Hgb 30.4 pg (27.0-32.0); Mean Corpuscular Volume 90.3 fL (81-99); Mean Platelet Vol. 10.4 fl (6.2-12.0); Platelet Count 248 K/mm3 (150-450); RBC Distribution Width CV 12.6 % (11.6-14.6); RBC Distribution Width SD 41.7 fl (35.1-43.9); Red Blood Count 3.92 M/mm3 (4.2-5.4); White Blood Count 18.1 K/mm3 (4.4-11.0)
[2019-11-06 11:04] LABS: Glucose Challenge Gest 1H 50g 124 mg/dL (70-140)
[2019-11-06 11:15] LABS: Amphetamine Urine VISTA NEGATIVE (<1000 ng/mL); Barbiturate Urine VISTA NEGATIVE (< 200 ng/mL); Benzodiazepine Urine VISTA NEGATIVE (< 200 ng/mL); Cocaine Urine VISTA NEGATIVE (< 300 ng/mL); Ecstacy Urine VISTA NEGATIVE (< 500 ng/mL); Methadone Urine VISTA NEGATIVE (< 300 ng/mL); PCP Urine VISTA NEGATIVE (< 25 ng/mL); THC Urine VISTA POSITIVE (< 50 ng/mL); Vista UDS pH Range 7
[2019-11-06 11:18] LABS: Vitamin D,25 Hydroxy 24.7 ng/mL (29.95-100.01)
[2019-11-09 00:56] LABS: Rapid Plasmin Reagin (RPR) NONREACTIVE (NONREACTIVE)
== END ==
PROVIDERS: Visit Provider Obstetrics & Gynecology
DX: Z34.82 Encounter for supervision of other normal pregnancy, second trimester (principal)
CPT/HCPCS: 36415; 80307; 82306; 82950; 85027; 86592; 86850

== ENCOUNTER → 2020-01-10 14:11 | Outpatient (CLI) | payer MEDICAID, SELFPAY | PROVIDERS: Visit Provider Obstetrics & Gynecology | DX: Z36.85 Encounter for antenatal screening for Streptococcus B (principal) | CPT/HCPCS: 87081 ==

== ENCOUNTER 2020-01-30 09:43 | Inpatient (IN) | payer MEDICAID, SELFPAY ==
[2020-01-30] VITALS (39 sets, daily range): BP systolic 106–157; BP diastolic 60–97; PULSE 54–89; RESP 18; TEMP 36.2–37.2; O2SAT 98–100; BMI 31.9
[2020-01-30] MEDS: Lactated Ringers 1,000 ML 50 ML IV (10:41)
[2020-01-30 10:49] LABS: Absolute Lymphocyte Count 2.49 X10^3/uL (0.83-4.51); Absolute Neutrophil Count 13.1 X10^3/uL (2.0-7.7); Basophil# 0.06 X10^3/uL; Basophil% 0.4 % (0-1); Eosinophil# 0.12 X10^3/uL; Eosinophils% 0.7 % (0-5); Hematocrit 35.9 % (37-47); Hemoglobin 12.1 g/dL (12.0-15.0); Lymphocyte # 2.49 X10^3/ul (4.0); Lymphocyte % 14.7 % (19-41); Mean Corp Hgb Conc 33.7 g/dL (32-36); Mean Corpuscular Hgb 30.1 pg (27.0-32.0); Mean Corpuscular Volume 89.3 fL (81-99); Monocyte# 0.97 X10^3/uL; Monocyte% 5.7 % (0-10); NRBC Flagged by Analyzer 0 % (0-5); Neutrophil # 13.11 X10^3/uL (2.7-7.7); Neutrophil % 77.3 % (47-70); Platelet Count 366 K/mm3 (150-450); RBC Distribution Width CV 13.7 % (11.6-14.6); RBC Distribution Width SD 44.7 fl (35.1-43.9); Red Blood Count 4.02 M/mm3 (4.2-5.4)
[2020-01-30 11:01] LABS: Amphetamine Urine VISTA NEGATIVE (<1000 ng/mL); Barbiturate Urine VISTA NEGATIVE (< 200 ng/mL); Benzodiazepine Urine VISTA NEGATIVE (< 200 ng/mL); Cocaine Urine VISTA NEGATIVE (< 300 ng/mL); Ecstacy Urine VISTA NEGATIVE (< 500 ng/mL); Methadone Urine VISTA NEGATIVE (< 300 ng/mL); PCP Urine VISTA NEGATIVE (< 25 ng/mL); THC Urine VISTA POSITIVE (< 50 ng/mL); Vista UDS pH Range 7
[2020-01-30] MEDS: Lactated Ringers 1,000 ML 200 ML IV (11:45)
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
--- NOTE | 2020-01-30 13:56 | PCM.PN.BLA ---
Progress Note S: Feeling comfortable with no pain. Can still feel legs to move them. States is ready to have this baby. O: VSS SVE 8-9/90/-2 UC Q5-[address] A/P: at 39w gestation, spontaneous labor AROM, moderate meconium stained fluid Pitocin started to augment contractions Expect STROKE Vital Signs/Narrative: Vital Signs Temp Pulse BP Pulse Ox 01/30/20 13:06 97.7 F L 99 01/30/20 12:46 68 106/63 01/30/20 12:26 66 107/60 01/30/20 12:06 77 119/70 01/30/20 11:41 78 132/71 H 01/30/20 11:40 100 01/30/20 11:36 76 130/71 H 01/30/20 11:35 77 100 01/30/20 11:31 78 128/74 H 01/30/20 11:30 79 100 01/30/20 11:26 89 129/75 H 01/30/20 11:25 97.9 F 82 99 01/30/20 11:21 82 128/79 H 01/30/20 11:20 99 01/30/20 11:16 74 135/97 H 01/30/20 11:15 74 98 01/30/20 11:13 77 157/89 H 01/30/20 11:10 81 99 01/30/20 11:06 76 146/79 H 01/30/20 11:05 76 99 01/30/20 11:01 85 131/89 H 01/30/20 11:00 98
[2020-01-30] MEDS: Oxytocin 30 units/NS 500 ml 30 UNITS/500 ML IV.SOLN IV (13:57)
[2020-01-30] MEDS: Oxytocin 30 units/NS 500 ml 30 UNITS/500 ML IV.SOLN 334 UNITS IV (14:35)
--- NOTE | 2020-01-30 14:57 | OP.PCM_ITS ---
Problem List (1) 39 weeks gestation of Status: Acute Vaginal Delivery Maternal Presentation: Active Labor Amniotic Membrane Rupture Type: Artificial Amniotic Fluid Description: Moderate meconium Final ADRIAN: 02/01/20 Final ADRIAN Source: US <20 weeks Gestational age: 39 Weeks and 5 Days Date of Procedure: 01/30/20 Pre-Operative Diagnosis: 39 weeks gestation Post-Operative Diagnosis: Surgery/ Procedure Performed: Spontaneous Vaginal Delivery Type of Anesthesia: Epidural Description of Procedure: Patient was FD/+3 station when marketing underwriter was called. Upon my arrival, patient has precipitously delivered a vigorous female infant over an intact perineum. The infant was placed on the maternal abdomen by labor nurse and further attended by nursery personnel. The cord was doubly clamped and cut at approximately 30 seconds of life. On my arrival, Pitocin started. With signs of placenta separation at 5 minutes, gentle cord traction to deliver placenta which appeared intact on inspection. A left periurethral skid marino was noted on inspection, not needing any repair. Fundus firm and midline upon massage. EBL 150. Apgars 8/9. Sponge counts correct x 2. Presentation: Vertex Placental Delivery Description: Spontaneous Placenta Disposition: [facility] Cord Vessel Description: 3 Vessels Cord Entanglement: None Drain: Mendoza to straight drain Estimated Blood Loss: 150 Infant A gender: Female (1 minute): 8 (5 minute): 9 Episiotomy Description: None Laceration: None - periurethral skid marino Medications given after delivery: IV Pitocin
--- NOTE | 2020-01-30 16:19 | DCINST_ITS ---
Discharge Diet: No Restrictions Discharge Activity: Return to Normal Activity, May not drive while taking narcotic pain medications., May Shower May resume sexual activity in: 4-6 weeks Additional Activity Instructions:: Nothing in the vagina for 4-6 weeks. You may return to work/school in 6 weeks. Call your doctor if your incision/area has: Continuous Slow Oozing, Sudden Increased Bleeding, Increased Pain/ Swelling, Increased Redness, Foul Smelling Discharge Instructions: After a Vaginal , Understanding Depression Additional Instructions: If you experience any of the following, contact your healthcare provider. * Bleeding that soaks a pad every hour for 2 hours * Fever 100.4 or higher * Unrelieved incision or abdominal pain * Swelling, redness, discharge or bleeding from your incision or episiotomy site * Your incision begins to separate * Problems urinating (including inability to urinate or burning while urinating). * Visual changes * Severe headache * Flu-like symptoms * Pain or redness in one of both of your breasts * Pain, warmth, tenderness or swelling in your legs, especially the calf area * Frequent nausea and vomiting * Symptoms of depression or anxiety If you experience any of the following, call 911 or go to the nearest Emergency Room. * Chest pain * Problems breathing * Seizure activity * Partial or complete paralysis of a body part, slurred speech, weakness or drooping of the face, or a sudden inability to walk or hold your balance Allergies/Adverse Reactions: Allergies No Known Allergies Allergy (Verified 01/30/20 09:57) Medications to take at Discharge Pnv No.95/Ferrous Fum/Folic AC [ Caplet] 1 ea PO 01/30/20 Sertraline HCl [Zoloft] 01/30/20 Vitamin B Complex Vit C No.3 01/30/20 Please Follow Up With: Lianne Tidwell CNM When: Call to make an appointment with your doctor in 6 weeks. If you have signs of depression, to call the office immediately. Test Results: Test results from this visit will be discussed in further detail at your follow- up appointment, if applicable.
[2020-01-31 03:51] VITALS: BP 120/69; PULSE 57; RESP 16; TEMP 36.3
[2020-01-31 08:06] VITALS: BP 118/83; PULSE 77; RESP 16; TEMP 36.6; O2SAT 99
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
[2020-01-31 11:46] VITALS: BP 113/71; PULSE 80; RESP 16; TEMP 36.5; O2SAT 99
== END 2020-01-31 15:15 | disposition home or self-care (01) | DRG 560 ==
LOC: WPOUT 09:45 → WP 09:45
PROVIDERS: Obstetrics & Gynecology; Admitting Provider Obstetrics & Gynecology; Visit Provider Obstetrics & Gynecology
DX: O62.3 Precipitate labor (principal); O77.0 Labor and delivery complicated by meconium in amniotic fluid; Z3A.39 39 weeks gestation of pregnancy; Z37.0 Single live birth; Z87.891 Personal history of nicotine dependence
CPT/HCPCS: 59050; 80307; 85025; 86850; 86900; 86901; 99218; J7120; G0378

== ENCOUNTER → 2021-09-16 15:19 | Outpatient (CLI) | payer MEDICAID, SELFPAY ==
[2021-09-22 16:13] LABS: HPV Reflexed? NOT INDICATED
== END ==
PROVIDERS: Visit Provider Obstetrics & Gynecology
DX: Z12.4 Encounter for screening for malignant neoplasm of cervix (principal)
CPT/HCPCS: 88175; G0145

== ENCOUNTER 2024-04-16 14:36 | Emergency (ER) | payer MEDICAID, SELFPAY ==
[2024-04-16 14:37] VITALS: BP 132/102; PULSE 87; RESP 16; TEMP 36.6; O2SAT 97; BMI 24.6
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
[2024-04-16] MEDS: 0.9% Normal Saline (1000mL) 1,000 ML 999 ML IV (15:17)
[2024-04-16 15:39] LABS: Anion Gap 11 (5-15); BUN 11 mg/dL (7-18); BUN/Creat Ratio 15.6 RATIO (10-20); Calcium,Total 8.9 mg/dL (8.5-10.1); Chloride 102 mmol/L (98-107); Creatinine, Serum 0.71 mg/dL (0.55-1.02); EST Glomerular Filtration Rate 102 mL/min (>60); Est Glom Filt Rate - Afr Amer 123 mL/min (>60); Estimated Creatinine Clearance 110.62 ml/min; Glucose 80 mg/dL (74-106); Potassium 3.9 mmol/L (3.5-5.1); Sodium Level 134 mmol/L (136-145)
[2024-04-16 15:42] LABS: Absolute Neutrophil Count 10.8 X10^3/uL (2.0-7.7); Basophil# 0.11 X10^3/uL; Basophil% 0.7 % (0-1); Eosinophil# 0.06 X10^3/uL; Eosinophils% 0.4 % (0-5); Hematocrit 41.3 % (37-47); Lymphocyte % 17.4 % (19-41); Mean Corp Hgb Conc 33.9 g/dL (32-36); Mean Corpuscular Hgb 30.4 pg (27.0-32.0); Mean Corpuscular Volume 89.8 fL (81-99); Mean Platelet Vol. 8.4 fl (6.2-12.0); Monocyte# 1.29 X10^3/uL; Monocyte% 8.7 % (0-10); NRBC Flagged by Analyzer 0 % (0-5); Neutrophil # 10.81 X10^3/uL (2.7-7.7); Neutrophil % 72.5 % (47-70); Platelet Count 440 K/mm3 (150-450); RBC Distribution Width CV 13.4 % (11.6-14.6); RBC Distribution Width SD 44.1 fl (35.1-43.9); White Blood Count 14.9 K/mm3 (4.4-11.0)
[2024-04-16 16:21] VITALS: BP 124/87; PULSE 71; RESP 18; TEMP 36.3; O2SAT 99
== END 2024-04-16 16:22 | disposition home or self-care (01) ==
PROVIDERS: Emergency Provider Emergency Medicine; Visit Provider Emergency Medicine
DX: S40.021A Contusion of right upper arm, initial encounter (principal); F17.210 Nicotine dependence, cigarettes, uncomplicated; Y04.8XXA Assault by other bodily force, initial encounter; R22.1 Localized swelling, mass and lump, neck; M54.2 Cervicalgia; S40.022A Contusion of left upper arm, initial encounter; Z79.899 Other long term (current) drug therapy
CPT/HCPCS: 70491; 80048; 85025; 96360; 99282; J7030; Q9967; A4216

== ENCOUNTER 2024-05-07 14:23 | Emergency (ER) | payer MEDICAID, SELFPAY ==
[2024-05-07 14:24] VITALS: BP 141/85; PULSE 80; RESP 16; TEMP 36.5; O2SAT 100; BMI 23.1
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
== END 2024-05-07 16:28 | disposition home or self-care (01) ==
PROVIDERS: Emergency Provider Emergency Medicine; Visit Provider Emergency Medicine
DX: S92.512A Displaced fracture of proximal phalanx of left lesser toe(s), initial encounter for closed fracture (principal); Z87.891 Personal history of nicotine dependence; W22.8XXA Striking against or struck by other objects, initial encounter
CPT/HCPCS: 73660; 99282

== ENCOUNTER → 2025-06-26 | Outpatient (CLI) | payer MEDICAID, SELFPAY | END | disposition home or self-care (01) | PROVIDERS: Visit Provider Physician Assistant | DX: Z20.2 Contact with and (suspected) exposure to infections with a predominantly sexual mode of transmission (principal) ==